=== PATIENT | male | born 1945 | race Caucasian/White ===

== ENCOUNTER 2023-05-14 10:42 | Day surgery (SDC) | payer MEDICARE ==
[2023-05-14] VITALS (25 sets, daily range): BP systolic 95–148; BP diastolic 52–98
[~2023-05-14] VITALS: Ht 175.3 cm; Wt 71.9 kg
[~2023-05-14 10:42] MED LIST: ATOR40TA PO; CALQUENCE100 M1 PO; ELIQUIS2.5 MG PO; METO25 PO; OMEP20ER PO; TRELEGY ELLIPT1 EACH IH
[2023-05-14] MEDS ORDERED: METF500 PO ×2 (11:52→11:53)
== END 2023-05-14 15:08 | disposition home or self-care (01) ==
LOC: ORSCMMR 10:42
PROVIDERS: Student in an Organized Health Care Education/Training Program
PROC: 0BDJ8ZX Extraction of Left Lower Lung Lobe, Via Natural or Artificial Opening Endoscopic, Diagnostic (ICD-10-PCS; principal; 2023-05-14 12:00)
DX: R91.8 Other nonspecific abnormal finding of lung field (principal); J40 Bronchitis, not specified as acute or chronic; J44.9 Chronic obstructive pulmonary disease, unspecified; Z87.891 Personal history of nicotine dependence; Z79.899 Other long term (current) drug therapy
CPT/HCPCS: 82947; 87070; 87077; 87102; 87186; 87205; 88108; 88305; A9270; J0171; J2001; J2250; J2704; J3010; J7120